=== PATIENT | male | born 1955 | race Caucasian/White ===

== ENCOUNTER 2018-07-05 18:49 | Emergency (ER) | payer MEDICARE, OTHER ==
[~2018-07-05] VITALS: Ht 172.7 cm; Wt 93.2 kg
--- NOTE | 2018-07-05 19:25 | PHYS DOC ---
Past History Additional Past Medical Histor: see rn notes Adult General Chief Complaint Chief Complaint: SUICDAL IDEATION HPI HPI Patient is a 63-year-old male brought in by ambulance with a chief complaint of alcohol intoxication as well as suicidal ideation. Apparently his last year he has been drinking alcohol more heavily he had 3 big beers today he says he just does not want to be around anymore he does not want to live anymore. He says he has not been eating because he just wants to . no Specific plan other than to drink himself to Review of Systems Review of Systems Limited by intoxication Physical Exam Physical Exam Constitutional: Well developed, disheveled smells like alcohol HENT: Normocephalic, atraumatic, bilateral external ears normal, oropharynx moist, no oral exudates, nose normal. [] Eyes: PERRLA, EOMI, conjunctiva normal, no discharge. [] Neck: Normal range of motion, no tenderness, supple, no stridor. [] Pulmonary: Normal respiratory effort no increased work of breathing no obvious chest wall trauma no chest wall crepitus [] Abdomen: Bowel sounds normal, soft, no tenderness, no masses, no pulsatile masses. [] Back: No tenderness, no CVA tenderness. [] Extremities: No tenderness, no cyanosis, no clubbing, ROM intact, no edema. [] Scattered abrasions Neurologic: Alert and oriented X 3, normal motor function, normal sensory function, no focal deficits noted. []Slurred speech consistent with known alcohol intoxication Psychologic: Patient has a blunted affect reports depression report suicidal ideation but no plan l. [] Current Patient Data Vital Signs Afebrile blood pressures in the 140s heart rates in the 80s satting 97 on room air. EKG EKG [] Radiology/Procedures Radiology/Procedures [] Course & Med Decision Making Course & Med Decision Making Pertinent Labs and Imaging studies reviewed. (See chart for details) []63-year-old male normally goes to the [facility] complaining of suicidal ideation plan for medical clearance and we will have psychiatry evaluate the patient bg wasw 58 in field, going up, patient had juice. he has not been eating. noted labs mild hypoantremai treated with ivf. noted etoh level, likely explains the mild anion gap. pt will get po in ed, serial etoh levels and psychiatric evaluation. Patient is reevaluated several times in the emergency room overnight. He did receive 2 doses of oxycodone for chronic pain. He requested Ativan several times however at this facility apparently psychiatric screener's preferred patient does not receive benzodiazepines prior to evaluation. Patient repeat alcohol level that was less than 100 per the usual local protocol. At this point time we're waiting for psychiatric screening patient is resting comfortably in the emergency room as of 4:30 AM. care to giovanni 6 am Patient's care was received from Dr. Muir at 6:00 AM. At the time of his departure, patient was pending crisis evaluation. After evaluation, crisis has indicated that they feel the patient is safe for discharge with safety plan. Dragon Disclaimer Dragon Disclaimer This electronic medical record was generated, in whole or in part, using a voice recognition dictation system. Departure Departure: Impression: Primary Impression: Alcohol abuse Additional Impression: Depression Disposition: 01 HOME, SELF-CARE Condition: STABLE Patient Instructions: Alcohol Intoxication, Depression, Adult, Suicidal Feelings, How to Help Yourself Problem Qualifiers Additional Impression: Depression Depression Type: unspecified Qualified Codes: F32.9 - Major depressive disorder, single episode, unspecified CHARLENE MUIR MD Jul 05, 2018 19:25 YUNG SÁNCHEZ Jr. DO Jul 06, 2018 07:39
[2018-07-05 19:36] LABS: BASO % 0 % (0-3); EOS % 0 % (0-3); HEMATOCRIT 37.9 % (39.0-53.0); HEMOGLOBIN 13.1 g/dL (13.0-17.5); LYMPH # 1.8 x10^3/uL (1.0-4.8); LYMPH % 13 % (24-48); MEAN CORPUSCULAR HEMOGLOBIN 30 pg (25-35); MEAN CORPUSCULAR HGB CONC 35 g/dL (31-37); MEAN CORPUSCULAR VOLUME 87 fL (79-100); MONO # 0.5 x10^3/uL (0.0-1.1); MONO % 3 % (0-9); NEUT # 11.1 x10^3uL (1.8-7.7); NEUT % 83 % (31-73); PLATELET COUNT 171 x10^3/uL (140-400); RED BLOOD COUNT 4.35 x10^6/uL (4.30-5.70); RED CELL DISTRIBUTION WIDTH 15.2 % (11.5-14.5); WHITE BLOOD COUNT 13.4 x10^3/uL (4.0-11.0)
[2018-07-05 19:43] LABS: CALCIUM 8.7 mg/dL (8.5-10.1); POTASSIUM 4.1 mmol/L (3.5-5.1); TOTAL BILIRUBIN 0.8 mg/dL (0.2-1.0); TOTAL PROTEIN 8.1 g/dL (6.4-8.2)
[2018-07-05 19:46] LABS: ACETAMIN < 2 mcg/mL (10-30); ETHANOL 213 mg/dL (0-10); SALIC 5.1 mg/dL (2.8-20.0)
[2018-07-05] MEDS ORDERED: oxyCODONE IR 5 MG TABLET PO STA (19:50)
[2018-07-05] MEDS ORDERED: IV NORMAL SALINE 1,000ML 1,000 ML IV ONE (21:00)
[2018-07-05 21:16] LABS: BARBITURATES NEG (NEG); BENZODIAZEPINES NEG (NEG); CANNABINOIDS NEG (NEG); COCAINE NEG (NEG); METHADONE NEG (NEG); OPIATES NEG (NEG); PHENCYCLIDINE NEG (NEG)
[2018-07-05 21:20] LABS: AMPHETAMINE/METHAMPHETAMINE NEG (NEG)
[2018-07-06] MEDS ORDERED: oxyCODONE IR 5 MG TABLET PO ONE ×2 (00:15→05:15)
[2018-07-06] MEDS ORDERED: ACETAMINOPHEN 500 MG TABLET PO ONE (01:45)
[2018-07-06 06:52] VITALS: BP 143/84
== END 2018-07-06 07:52 | disposition home or self-care (01) ==
LOC: ER 18:49
DX: F10.129 Alcohol abuse with intoxication, unspecified (principal); F32.9 Major depressive disorder, single episode, unspecified; Y90.7 Blood alcohol level of 200-239 mg/100 ml
CPT/HCPCS: 36415; 80053; 80307; 82947; 85025; 99284; G0480; G6039; 82003; G0479; J7030

== ENCOUNTER → 2021-05-04 | Outpatient (CLI) | payer OTHER ==
--- NOTE | 2021-05-04 16:14 | RAD ---
XR FEMUR_LEFT 1 VIEW 05/04/2021 Reason: POST ORIF LEFT DISTAL FEMUR Comparison: Femur radiographs 04/12/2021 Technique: 2 views of the left femur Findings: Redemonstration of total hip arthroplasty in anatomic alignment. There are changes of ORIF along the lateral femur with a cerclage wire. The hardware appears intact. No periprosthetic fractures or signi ficant angulation. Lateral skin dahlia are noted. There are degenerative changes of the knee. Impression: Redemonstration of total left hip arthroplasty and ORIF of the femur without significant change. Electronically signed by: Harshil Santizo (05/04/2021 4:12 PM) [id number]
== END ==
LOC: RAD 11:06
PROVIDERS: ATTEND Physician Assistant
DX: M17.12 Unilateral primary osteoarthritis, left knee (principal); Z96.642 Presence of left artificial hip joint; Z98.890 Other specified postprocedural states
CPT/HCPCS: 73552

== ENCOUNTER → 2021-06-29 | Outpatient (CLI) | payer OTHER ==
--- NOTE | 2021-06-29 16:44 | RAD ---
EXAM: Lumbar spine, 3 views. HISTORY: Pain. COMPARISON: None. FINDINGS: 3 views of the lumbar spine are obtained. There is lumbar levoscoliosis centered at L4. The re is mild lumbar hyperlordosis. There is minimal retrolisthesis of L2 on L3 and L3 on L4. There is d egenerative endplate remodeling with disc space narrowing predominantly at L4-L5. There is facet arth ropathy at the mid lower lumbar levels. There is a left hip arthroplasty, partially included on the f [id number]. IMPRESSION: 1. Multilevel degenerative change, primarily at L4-L5. 2. Mild lumbar scoliosis and hyperlordosis. Electronically signed by: Padma Julien MD (06/29/2021 4:41 PM) [facility]
--- NOTE | 2021-06-30 08:26 | RAD ---
EXAM: AP and lateral views left femur DATE: 06/29/2021 10:28 AM INDICATION: Reason: BACK PAIN AND LEFT FEMUR PAIN / Spl. Instructions: / History: . COMPARISON: No Prior FINDINGS: Changes of left total hip arthroplasty, in good alignment without definite hardware complication or f racture. Lateral screw plate fixation of the distal left femoral fracture without definite hardware c omplication. Progressively healing distal left femoral fracture in stable alignment. Severe left knee joint osteoarthritis. IMPRESSION: 1. Progressively healing left distal femoral shaft fracture post reduction and fixation, in good ali gnment without definite hardware complication Electronically signed by: Todd Jacobs MD (06/30/2021 8:24 AM) [facility]
== END ==
LOC: RAD 10:19
PROVIDERS: ATTEND Physician Assistant
DX: S72.302D Unspecified fracture of shaft of left femur, subsequent encounter for closed fracture with routine healing (principal); M47.816 Spondylosis without myelopathy or radiculopathy, lumbar region; M41.86 Other forms of scoliosis, lumbar region; X58.XXXD Exposure to other specified factors, subsequent encounter; Z98.890 Other specified postprocedural states
CPT/HCPCS: 72100; 73552